=== PATIENT | female | born 1965 | race Caucasian/White ===

== ENCOUNTER 2024-09-19 07:06 | Day surgery (SDC) | payer OTHER, SELFPAY ==
[2024-09-19] VITALS (13 sets, daily range): BP systolic 125–145; BP diastolic 61–89; BMI 21.0
--- NOTE | 2024-09-19 16:23 | DOWNTIME ---
There was a [employer] Client Warehouse Associate Downtime on 09/19/2024 from 1230 to 09/19/2024 at 1550. Downtime documentation of patient's care, including medication administrations, has been reconciled in the electronic record per guidelines. Refer to the
patient's paper chart under the miscellaneous tab to see printed paper medication records and downtime forms.
--- NOTE | 2024-09-19 16:44 | ITS.CL.CATH ---
Instrument And Controls Technician - Catheterization
Cardiac Catheterization
Procedure Report:
LEFT AND RIGHT HEART CATHETERIZATION
Date of Procedure: September 19, 2024
Referring: Eric Dave MD
PROCEDURES:
1. Left heart catheterization, coronary angiogram.
2. Right heart catheterization
3. Moderate sedation.
INDICATION: Preoperative planning for mitral valve surgery
ACCESS: Right radial artery, 6Fr. sheath, under US guidance. Right common femoral vein, 6 Danish sheath, under ultrasound guidance using a micropuncture kit
HEMODYNAMICS : (mmHg)
RA (m) : 8
RV (s/d,m) : 27/, 11
PA (s/d, m) : , 20
PCWP (m) : 13
PA saturation: 69.1% on room air
AO saturation: 96.0 on room air
RA saturation: 75.5% on room air
Cardiac Output : 3.22 L/min
Cardiac Index : 1.93 L/min/m-2
Systemic vascular resistance: 2555 dsc^(-5)
Pulmonary vascular resistance: 2.17 juarez unit
AO (s/d) : 150/80
LVEDP : 14
No significant gradient across the aortic valve to suggest aortic stenosis.
CORONARY FINDINGS
Dominance: Right
Left Main Trunk (LMT): Large caliber vessel that gives rise to the LAD and LCx branches and is free of angiographic disease.
Left Anterior Descending Artery (LAD): Large caliber vessel that gives off 3 small caliber major diagonal branches as it courses along the anterior inter-ventricular groove before wrapping around the cardiac apex. The LAD and its branches are free
of angiographic disease.
Left Circumflex Artery (LCx): Large caliber vessel that gives off 1 major obtuse marginal (OM) branch as it courses along the atrio-ventricular (AV) groove. The LCx and its branches are free of angiographic disease.
Right Coronary Artery (RCA): Large caliber dominant vessel that gives rise to the posterior descending artery (RPDA) and postero-lateral ventricular (RPLV) branches distally. The RCA and its branches are free of angiographic disease.
SEDATION: 36 minutes of procedural sedation was utilized. IV Midazolam and IV Fentanyl were administered. An independent medical insurance clerk was present to assist with and help manage the patient's level of consciousness and physiologic status.
RADIATION SUMMARY: Fluoro Time (min): 3.3, Dose (mGy): 101.44, DAP (Gy.cm2) : 7.1
Closure Device: There were no immediate intra-procedural complications. The sheath was pulled in the garage laborer and a vascular-band applied to the right wrist for radial artery hemostasis using the patent hemostasis technique.
CONCLUSIONS
1. No obstructive coronary artery disease.
2. Mildly elevated right and left-sided filling pressures with mildly decreased cardiac output in the setting of significantly elevated systemic vascular resistance.
RECOMMENDATIONS
1. Wean radial band per protocol. Monitor right hand perfusion and for bleeding from the radial site following removal of the vascular-band following trans-radial access.
2. Continue aggressive medical therapy and risk factor modification for secondary CAD prevention. Consider addition of afterload reducing medications as an outpatient such as losartan 25 mg daily to help improve forward flow.
3. Keep appointment as scheduled with Dr. Eric Dave from CT surgery.
Hermelinda Alonso MD, FACC, [facility] [place]
--- NOTE | 2024-09-19 16:52 | ITS.CL.CATH ---
Addendum entered and electronically signed by Hermelinda Alonso MD 09/19/24 17:09:
This report has been accidentally entered in this chart but belongs to a different patient. Request has been made to get this deleted from this patient's chart so therefore please ignore.
Hermelinda Alonso MD, [facility], [facility]
Original Note:
Audio Recording Engineer - Catheterization
Cardiac Catheterization
Procedure Report:
LEFT AND RIGHT HEART CATHETERIZATION
Date of Procedure: September 19, 2024
Referring: Emy Bansal DO
PROCEDURES:
1. Left heart catheterization, coronary angiogram.
2. Right heart catheterization
3. Moderate sedation.
INDICATION: Preoperative planning for mitral valve surgery
ACCESS: Right radial artery, 6Fr. sheath, under US guidance. Right brachial vein, 6 Northern Irish sheath.
HEMODYNAMICS : (mmHg)
RA (m) : 8
RV (s/d,m) : 32/8, 12
PA (s/d, m) : 30/13, 21
PCWP (m) : 16
PA saturation: 70.5 % on room air
AO saturation: 93.8 percent on room air
Invasive trans mitral gradient of 2.71 with mitral valve area of 3.13 cm�
Cardiac Output : 3.78 L/min
Cardiac Index : 2.55 L/min/m-2
Systemic vascular resistance: 1523 dsc^(-5)
Pulmonary vascular resistance: 1.32 juarez unit
AO (s/d) : 112/63
LVEDP : 18
No significant gradient across the aortic valve to suggest aortic stenosis.
CORONARY FINDINGS
Dominance: Right
Left Main Trunk (LMT): Large caliber vessel that gives rise to the LAD and LCx branches and is free of angiographic disease.
Left Anterior Descending Artery (LAD): Large caliber vessel that gives off 2 major diagonal branches as it courses along the anterior inter-ventricular groove before wrapping around the cardiac apex. Mid to distal LAD has an eccentric 50 to 60%
stenosis, otherwise there is mild diffuse atherosclerotic plaque.
Left Circumflex Artery (LCx): Large caliber vessel that gives off 1 major obtuse marginal (OM) branch as it courses along the atrio-ventricular (AV) groove. Proximal portion of OM 1 has 30 to 40% stenosis
Right Coronary Artery (RCA): Large caliber dominant vessel that gives rise to the posterior descending artery (RPDA) and postero-lateral ventricular (RPLV) branches distally. Proximal and mid RCA has 2 tubular 30 to 40% stenoses.
SEDATION: 36 minutes of procedural sedation was utilized. IV Midazolam and IV Fentanyl were administered. An independent medical aide was present to assist with and help manage the patient's level of consciousness and physiologic status.
RADIATION SUMMARY: Fluoro Time (min): 3.8, Dose (mGy): 165.5 DAP (Gy.cm2) : 11 point
Closure Device: There were no immediate intra-procedural complications. The sheath was pulled in the electroplating laborer and a vascular-band applied to the right wrist for radial artery hemostasis using the patent hemostasis technique.
CONCLUSIONS
1. No obstructive coronary artery disease.
2. Mildly elevated right and left-sided filling pressures with mildly decreased cardiac output in the setting of significantly elevated systemic vascular resistance.
RECOMMENDATIONS
1. Wean radial band per protocol. Monitor right hand perfusion and for bleeding from the radial site following removal of the vascular-band following trans-radial access.
2. Continue aggressive medical therapy and risk factor modification for secondary CAD prevention. We discussed with patient at length recommending initiation of loop diuretic given increased filling pressures with ongoing dyspnea on exertion
however patient is resistant to changing her current and amiloride and HCTZ combination which she is being prescribed by her project management advisor for kidney stones.
3. Keep appointment as scheduled with Dr. Eric Dave from CT surgery.
Hermelinda Alonso MD, [facility], [facility]
== END 2024-09-19 14:00 | disposition home or self-care (01) ==
LOC: CATH 07:06
PROVIDERS: ATTENDING PHYSICIAN Nuclear Medicine Nuclear Cardiology; FAMILY PHYSICIAN Family Medicine
DX: I08.1 Rheumatic disorders of both mitral and tricuspid valves (principal); I25.10 Atherosclerotic heart disease of native coronary artery without angina pectoris; Z01.818 Encounter for other preprocedural examination; N20.0 Calculus of kidney; I08.8 Other rheumatic multiple valve diseases
CPT/HCPCS: 93312; 93320; 93325; 99152; 99153; 93460; C1769; C1894; Q9967

== ENCOUNTER 2024-09-21 07:20 | Inpatient (IN) | payer OTHER, SELFPAY ==
[2024-09-14 09:04] VITALS: BMI 22.1
[2024-09-14 09:05] LABS: % Basophils 0.7 % (0-2); % Eosinophils 2.5 % (0-6); % Immature Granulocytes 0.2 % (0-0.5); % Lymphocytes 32.9 % (20.5-51.1); % Monocytes 4.7 % (1.7-9.3); Absolute Eosinophils 0.1 10^3/uL (0-0.7); Absolute Lymphocytes 1.5 10^3/uL (1.2-3.4); Absolute Monocytes 0.2 10^3/uL (0.1-0.6); Absolute Neutrophils 2.6 10^3/uL (1.4-6.5); Hematocrit 42.9 % (37.0-47.0); Hemoglobin 14.6 g/dL (12.0-16.0); Mean Corpuscular Hgb 31.9 pg (27.0-31.0); Mean Corpuscular Volume 93.9 fL (81.0-99.0); Mean Platelet Volume 10.1 fL (7.4-10.4); Nucleated Red Blood Cells % 0 %; Platelet Count 230 10^3/uL (130-400); Red Blood Cell Count 4.57 10^6/uL (4.20-5.40); Red Cell Dist. Width 12.2 % (11.5-14.5); White Blood Cell Count 4.5 10^3/uL (4.8-10.8)
[2024-09-14 09:20] LABS: Urine Albumin Negative (Neg - Trace); Urine Bilirubin Negative (Negative); Urine Character Clear (Clear); Urine Color Yellow; Urine Glucose Negative (Negative); Urine Ketone Negative (Negative); Urine Leukocyte 2+ (Negative); Urine Nitrite Negative (Negative); Urine Occult Blood Negative (Negative); Urine Urobilinogen Negative (Neg - 1+)
[2024-09-14 09:23] LABS: INR 1.01; PT 13.7 Sec (11.4-14.6)
[2024-09-14 09:37] LABS: ALT (SGPT) 26 U/L (0-35); AST (SGOT) 28 U/L (14-36); Albumin 4.8 g/dl (3.5-5.0); Alkaline Phosphatase 65 U/L (38-126); Blood Urea Nitrogen 14 mg/dl (7-17); Calcium 9.8 mg/dl (8.4-10.2); Carbon Dioxide 29 mmol/L (22-30); Chloride 109 mmol/L (98-107); Estimated Creatinine Clearance 81 ml/min; Glucose 95 mg/dl (70-99); Potassium 5.2 mmol/L (3.5-5.1); Sodium 143 mmol/L (135-145); Total Bilirubin 1.1 mg/dl (0.2-1.3); Total Protein 7.6 g/dl (6.3-8.2); eGFR > 60.00
[2024-09-14 09:48] LABS: Urine Bacteria Few (Negative); Urine Red Blood Cell 0-2 /HPF (0-2); Urine White Cell 0-2 /HPF (0-5)
[2024-09-14 10:06] LABS: Glycohemoglobin (HgbA1c) 5.1 % (4.0-5.6)
--- NOTE | 2024-09-14 10:30 | CM ---
Met with and Mrs. Napier in [facility]. She states prior to admission she resides with her spouse and daughter in a two story home with one step to enter. She states she has a full flight of steps to get to bedroom/full bathroom. She states she has
powder room on the first floor. She states prior to admission she was independent with ambulation and adls. She states she does not have any DME in the home. She has a prescription plan. She states her spouse and daughter will be home to assist
in her if needed. She also states she has very supportive neighbors. The discharge plan is to return home with her spouse and her daughter with a home visit by the Transitional Care Nurse when medically stable.
We reviewed pre-op and post-op routines. We reviewed the showers instructions. She has the soap, written instructions and the Cardiothoracic Surgery Educational Booklet. We reviewed restrictions including lifting and driving restrictions. We
discussed a home visit by the Transitional Care Nurse. She is agreeable to a home visit. The plan is for Mitral Valve Repair on Saturday, September 21, 2024.
[2024-09-21] VITALS (16 sets, daily range): BP systolic 83–130; BP diastolic 42–77; PULSE 2–57; BMI 21.4
[2024-09-21] MEDS: PROTONIX 40 MG PO (08:26)
[2024-09-21] MEDS: MAGNESIUM OXIDE 500 MG PO (08:26)
[2024-09-21] MEDS: LOPRESSOR 25 MG PO (08:26)
--- NOTE | 2024-09-21 08:31 | PTCARENOTE ---
received pt pre op into 2260, confirmed shower x2 INTERNET MARKETING COORDINATOR, NPO since MN, pt clipped and prepped w CHG. Interview questions and medication list reviewed w the pt. Plan of care reviewed and questions encouraged.
[2024-09-21] MEDS: BACTROBAN 2% OINTMENT 1 APPLIC NASAL ×2 (08:50→20:12)
[2024-09-21 09:46] LABS: ACT+ - POC 107 Seconds (82-134)
--- NOTE | 2024-09-21 10:31 | W.CVOR.SURPR ---
CVOR Surgeon Immed Pre Op
-
I have examined this patient prior to performance of the scheduled procedure.
The patient's condition is unchanged from the time of the dictated/written History and
Physical and the patient is able to undergo the scheduled procedure.
HP MV Repair +/- ANYA Clip
[2024-09-21 10:40] LABS: Urine Albumin Negative (Neg - Trace); Urine Bilirubin Negative (Negative); Urine Character Clear (Clear); Urine Color Yellow; Urine Glucose Negative (Negative); Urine Ketone Negative (Negative); Urine Leukocyte Negative (Negative); Urine Nitrite Negative (Negative); Urine Occult Blood Negative (Negative); Urine Urobilinogen Negative (Neg - 1+)
[2024-09-21 11:16] LABS: ACT+ - POC 545 Seconds (82-134)
[2024-09-21 11:32] LABS: B.E. - POC 1.5 mmol/L; Glucose - POC 106 mg/dl (70-99); HCO3 - POC 28 mmol/L (21-28); Hematocrit - POC 34 % PCV (37-47); Hemodilution- POC No; Hemoglobin Calculated - POC 11.4; Ionized Calcium - POC 1.24 mmol/L (1.15-1.33); Lactate - POC 0.74 mmol/L (0.36-0.75); O2 Saturation %Calculated-POC 99.8 % (94-98); PCO2 - POC 50 mmHg (35-48); PO2 - POC 260 mmHg (83-108); Potassium - POC 4.4 mmol/L (3.5-5.1); Sodium - POC 142 mmol/L (136-145); Specimen Type - POC Arterial; pH - POC 7.36 (7.35-7.45)
--- NOTE | 2024-09-21 11:42 | CM ---
Chart reviewed. Patient is in the OR today. Patient is independent of ADLS, lives with her and daughter in a 2 STH, 1 KALA, 0 DME. Plan is for the patient to return home with CT Transitional RN. CM to follow
[2024-09-21 12:13] LABS: ACT+ - POC 472 Seconds (82-134)
[2024-09-21 12:34] LABS: B.E. - POC 3.6 mmol/L; Glucose - POC 142 mg/dl (70-99); HCO3 - POC 28 mmol/L (21-28); Hematocrit - POC 33 % PCV (37-47); Hemodilution- POC Yes; Hemoglobin Calculated - POC 11.2; Ionized Calcium - POC 1.06 mmol/L (1.15-1.33); Lactate - POC 0.34 mmol/L (0.36-0.75); PCO2 - POC 41 mmHg (35-48); PO2 - POC 399 mmHg (83-108); Potassium - POC 5.9 mmol/L (3.5-5.1); Sodium - POC 140 mmol/L (136-145); Specimen Type - POC Arterial; pH - POC 7.45 (7.35-7.45)
[2024-09-21 12:54] LABS: ACT+ - POC 944 Seconds (82-134)
[2024-09-21 12:58] LABS: B.E. - POC 3.6 mmol/L; Glucose - POC 141 mg/dl (70-99); HCO3 - POC 28 mmol/L (21-28); Hematocrit - POC 32 % PCV (37-47); Hemodilution- POC Yes; Ionized Calcium - POC 1.06 mmol/L (1.15-1.33); Lactate - POC 0.82 mmol/L (0.36-0.75); PCO2 - POC 39 mmHg (35-48); PO2 - POC 413 mmHg (83-108); Potassium - POC 5.8 mmol/L (3.5-5.1); Sodium - POC 140 mmol/L (136-145); Specimen Type - POC Arterial; pH - POC 7.46 (7.35-7.45)
[2024-09-21 13:03] LABS: B.E. - POC 3.7 mmol/L; Glucose - POC 127 mg/dl (70-99); HCO3 - POC 31 mmol/L (21-28); Hematocrit - POC 31 % PCV (37-47); Hemodilution- POC Yes; Hemoglobin Calculated - POC 10.6; Ionized Calcium - POC 1.02 mmol/L (1.15-1.33); Lactate - POC < 0.30 mmol/L (0.36-0.75); PCO2 - POC 58 mmHg (35-48); PO2 - POC 424 mmHg (83-108); Potassium - POC 5.8 mmol/L (3.5-5.1); Sodium - POC 142 mmol/L (136-145); Specimen Type - POC Arterial; pH - POC 7.33 (7.35-7.45)
[2024-09-21 13:36] LABS: ACT+ - POC 192 Seconds (82-134)
[2024-09-21 13:43] LABS: B.E. - POC 1.1 mmol/L; Glucose - POC 132 mg/dl (70-99); HCO3 - POC 26 mmol/L (21-28); Hematocrit - POC 32 % PCV (37-47); Hemodilution- POC Yes; Hemoglobin Calculated - POC 10.7; Lactate - POC 2.18 mmol/L (0.36-0.75); O2 Saturation %Calculated-POC 99.5 % (94-98); PCO2 - POC 42 mmHg (35-48); PO2 - POC 172 mmHg (83-108); Potassium - POC 4.6 mmol/L (3.5-5.1); Sodium - POC 143 mmol/L (136-145); Specimen Type - POC Arterial
[2024-09-21 13:44] LABS: ACT+ - POC 123 Seconds (82-134)
--- NOTE | 2024-09-21 13:55 | W.PN.CT.SURG ---
CT Surgery Operative Note
-
CARDIAC SURGERY OPERATIVE REPORT
Preoperative Diagnosis: Myxomatous mitral valve degeneration, severe insufficiency, Agosto valve
Postoperative Diagnosis: Same
Procedure(s) Performed:
1. Right mini thoracotomy with right femoral artery and vein cannulation under ANNIKA guidance
2. Radical mitral valve repair (40 mm band annuloplasty, 6 sets of neocords to leaflets, for going to the posterior leaflet to go to the anterior leaflet at A2)
3. Placement temporary ventricular pacing wires
4. Trans esophageal echocardiography
5. Left atrial appendage exclusion (40 mm clip x 2)
Date of Surgery: 09/21/2024
Comorbidities:
1. Myxomatous mitral valve degeneration, type II pathology with severe insufficiency, Agosto valve
2. Mild mitral annular calcification
3. Hyperlipidemia
4. Palpitations
5. Ocular migraines
6. Mild cardiomegaly
Attending Surgeon: Eric Dave MD, MS
Assistants: Summer Swenson PA-C (present and necessary for retraction, suctioning, exposure, suture management, wound closure, etc. under my direction)
Anesthesiology: Jarocho Ribera MD and Ty Boswell CRNA
Scrub and Circulating RNs: Sawyer Alex, GENARO, Zeus Lopes RN
Proposal Director: Mary Jo Hagan CCP
Anesthesia: GETA
EBL: per perfusion records
Products: None
CPB Time: 123 minutes
Aortic Cross Clamp Time: 101 minutes
Indication(s) for Procedures: This is a 59-year-old female who is relatively healthy who was found to have severe mitral valve insufficiency. Additional workup demonstrated billowing of both the anterior and posterior leaflets with enlarged
scallops on both sides. She fit a Agosto valve morphology. Given her severe left atrial dilation, slightly elevated left ventricular dimensions, she opted to pursue mitral valve intervention. She made a class IIa indication. Given her
palpitations, her left atrial appendage will be managed with surgery especially in the setting of a dilated left atrium.
Mitral Valve Description: Thickening of both the anterior and posterior leaflets, irregular calcification extending from the annulus at P2 P3 over the mitral valve although not infiltrating into the leaflet itself. Enlarged scallops with large
cleft between P2 P3 and P1 and P2, asymmetrically dilated annulus.
Implants:
1. 40 mm Jay physio flex band annuloplasty, SN [id number]
2. 40 mm pro V clip, serial #[id number]
3. Chord-X sets x 2 (one on each papillary muscle had)
Specimen:
1. None
Findings: Left ventricular ejection fraction preoperatively 55% with no regional wall motion abnormalities. Following surgery EF was hyperdynamic as she was initially on Dobutrex at low-dose. After coming off Dobutrex her EF normalized to 55% with
no new regional wall motion abnormalities. Left atrial appendage was clipped initially with a 40 mm pro 3 clip however I felt that it was not sufficiently at the base and so I reclipped this with a pro V clip flush to the base. The mitral valve
was repaired with a 40 mm band annuloplasty secured in place using a total of 13 nonpledgeted 2 Ethibond's with core knots. I then placed a set of cords onto each papillary muscle head and anchored 4 to the posterior leaflet and 2 to the anterior
leaflet at A2. Dynamic inflation and pressurization LV demonstrated a good posterior coaptation margin after adjusting the height of the Clark-Osito cords. There is no residual MR on testing. There is no residual MR and there was good coaptation
pressurization. After coming off of cardiopulmonary bypass, there was no residual mitral valve insufficiency she did attempt to have some systolic anterior motion that resolved completely after coming off of Dobutrex and volume loading. Her mean
gradient across the valve with a cardiac index of 2.9 was 4 mmHg. Left atrial appendage was completely obliterated with no residual flow. She did not require any blood products, she did not require any inotropic support, and she regained her sinus
rhythm postoperatively without need for pacing. She did have frequent PVCs and so was given 2 Amio boluses intraoperatively.
Description of Procedure: The patient was brought to the operating room and placed supine in the table with their right side bumped up and right arm down. Arterial and central access was performed by anesthesiology. The patient was prepped from chin
to toes in the typical sterile fashion. Trans esophageal evaluation of cardiac function and all valvular structures was conducted. Before commencing, a time out was performed by all members of the team. All were in agreement with the procedure and
laterality and I proceeded. A small right groin incision was made to expose the common femoral artery and vein. A total of 45,000 units of heparin was given. A 5-6 cm right lateral muscle sparing thoracotomy sweeping the pec major muscle cephalad at
the seratus anterior was performed over the 4th intercostal space verified by visualization of the hilum. Care was taken not to disrupt or injure her right breast implant. The common femoral artery and vein were cannulated under transesophageal
guidance using open Seldinger technique. The arterial line was verified to have an appropriate bounce and pressure correlating with testing. Once the ACT was above 400, retrograde autologous priming was done and we commenced cardiopulmonary bypass.
Target core temperature was 34�C.
Carbon dioxide was used to flood the field. The course of the phrenic nerve was identified to prevent injury. The pericardium was opened and two stay sutures were placed to facilitate a ``pericardial table.�� The oblique sinus was developed followed
by the inter atrial groove. An antegrade root vent was inserted and secured with a pursestring suture. The pump flow and mean arterial pressure were lowered and an aortic cross clamp was applied to the ascending aorta. A total of 1.2L initial dose
of Antegrade cardioplegia was delivered. We had rapid electro myocardial quiescence at 250 cc of cardioplegia. The ventricle was monitored for distension by echocardiogram during this time. Once the heart was fully arrested and flaccid, the left
atrial appendage was clipped via the transverse sinus. The left atrium was incised and enlarged. A left atrial lift retractor was placed. The mitral valve was inspected. The mitral valve was repaired as described above. The left atriotomy was
closed with 3-0 prolene in a running fashion leaving a ventricular vent in place to de-air. After filling the heart, the vent was removed and the prolene was secured with a corknot. Unipolar ventricular pacing wire was placed on the base of the
right ventricle. The patient was placed into Trendelenburg position and pump flows were lowered. The clamp was slowly removed with the root vent turned on. De-airing maneuvers were performed. We started to rewarm with a target of 36.5�C.
As the heart recovered, the mitral valve and ventricular function were assessed under transesophageal echocardiogram. Once weaning parameters were satisfactory, cardiopulmonary bypass flow was lowered until we were off cardiopulmonary bypass the
mitral valve was inspected again. All surgical sites were inspected for hemostasis and appeared appropriate. We briefly went back on cardiopulmonary bypass in order to remove the antegrade line. The lines were clamped and the arterial was
relocated to the venous cannula to give back volume. A test dose of protamine was delivered and patient was monitored for any adverse reactions followed by complete protamine dosing. The femoral vessels were decannulated and repaired as indicated.
The pericardium was approximated with 2-0 ethibond sutures secured with corknots. One 19F Norbert drain remained in the pleural space and threaded into the pericardium. There was an excellent palpable distal pulse to the DIVERSIFIED CROPS FARMER cannulation site. Local
analgesia was injected to the thoracotomy. The incision was closed in layers in a running fashion.
All instrument, sponge, and needle counts were confirmed to be correct x 2 at the end of the operation. The patient was transferred to the cardiac intensive care unit in critical but stable condition.
I, Dr. Eric Dave, was present, scrubbed for, and performed all critical elements of this procedure.
Eric Dave MD, MS
Cardiothoracic Surgeon
[facility]
This dictation was created using the [employer] dictation system. Please excuse any grammatical, typographical, or 'sound alike' errors
--- NOTE | 2024-09-21 14:15 | W.PN.CARDCBS ---
Addendum entered and electronically signed by Khris Walker MD 09/21/24 15:22:
Now Post-op
Extubated (in OR), currently on NRB and resting comfortably
Sleepy but arousable
RRR, Nl S1 and S2, No S3 or S4, No murmurs or rubs
CTs in place
Lungs clear anteriorly
Ext +1 LE edema b/l
Abd is Soft and non-distended
She underwent radical MV repair with 40 mm band annuloplasty via right minithoracotomy, ANYA clip on 09/21/2024 (Clip X2 with second clip noted to be flush to the base)
Hemodynamically stable post op, CI 2.4, on low dose levo at 2 mcg/min
Remains in SR
Overall stable, continue post-op care and wean levo as tolerates
Original Note:
Today's Communication / Plan
-
continue post op care
Impression / Plan
-
Primary Student Driving Instructor: Dr. Hernandez of [facility]
Assessment:
Severe mitral regurgitation status post radical MV repair with 40 mm band annuloplasty via right minithoracotomy, ANYA clip on 09/21/2024
Nonobstructive CAD by cath 09/19/24
Hyperlipidemia
History of palpitations
Ocular migraines
ECHO 09/04/24 at [facility]: EF 55%, severely dilated LA, mildly dilated RA, prolapse of both mitral valve leaflets, severe M R, high velocity MR jets
Plan:
-status post radical MV repair with 40 mm band annuloplasty via right minithoracotomy, ANYA clip on 09/21/2024
-extubated in OR. remains sedated
-CI 2.33. on levo@2 and receiving IVF. wean levo as able
-SB on review of tele and EKG
-was on lipitor 20mg HS prior to admission, resume when able
-continue post op care
-d/w nursing
Progress Note - Student Driving Instructor
Subjective
Date of Service: September 21, 2024
sedated
Objective
Labs:
Labs
Hgb 14.6 g/dL (12.0-16.0) 09/14/24 08:46
Hct 42.9 % (37.0-47.0) 09/14/24 08:46
Plt Count 230 10^3/uL (130-400) 09/14/24 08:46
PT 13.7 Sec (11.4-14.6) 09/14/24 08:46
INR 1.01 09/14/24 08:46
APTT Cancelled 09/14/24 08:14
Sodium 143 mmol/L (135-145) 09/14/24 08:46
Potassium 5.2 mmol/L (3.5-5.1) H 09/14/24 08:46
BUN 14 mg/dl (7-17) 09/14/24 08:46
Creatinine 0.7 mg/dL (0.6-1.0) 09/14/24 08:46
Glucose 95 mg/dl (70-99) 09/14/24 08:46
Vital Signs and I&O:
Vital Signs
Temp Resp BP Pulse Ox
97.9 F 16 122/68 99
09/21/24 07:20 09/21/24 07:20 09/21/24 07:17 09/21/24 07:20
Vital Signs
Temp Resp BP Pulse Ox
97.9 F 16 122/68 99
09/21/24 07:20 09/21/24 07:20 09/21/24 07:17 09/21/24 07:20
Intake & Output
09/19/24 09/20/24 09/21/24 09/22/24
07:59 07:59 07:59 07:59
Intake Total 0 / 0
Balance 0 / 0
Physical Exam
Physical Exam
GEN: No distress, sedated, on NRB. on brandan hugger
HEENT: supple, mmm
LUNGS: CTA B/L, no wheezes
CV: Reg and david, S1/S2, no murmur
ABD: soft, BS+, NT/ND
EXT: No cyanosis, clubbing, edema
NEURO: Gross non-focal
SKIN: Warm, pink, dry. No rash
[2024-09-21] MEDS: TYLENOL PO (14:17)
--- NOTE | 2024-09-21 14:18 | CON.INTV ---
Consultation
Consultation Request
Date/Time Consultation Requested: 09/21/2024 - 1343
Date/Time Consultation Performed: 09/21/2024 - 1406
Requesting Provider: Eloise Lucio NP
Performing Provider: Dr. Mcmillan
Reason for Consultation: s/p MV-repair
Medical History
-
Chief Complaint: Elective mitral valve repair
History of Present Illness:
59-year-old female with a past medical history of mitral valve regurgitation, ocular migraines, and hypercholesterolemia who presents for elective mitral valve repair. Patient is known to the cardiothoracic surgery service with last visit with
Jolie on 09/07/2024. Patient has a known history of severe MR. She had an echo done on 09/04/2022 which showed severely dilated LA with severe mitral valve insufficiency with a complex jet that was central and posteriorly directed. She also has been
noticing increasing palpitations and chest discomfort. Risks and benefits of cardiothoracic intervention were reviewed and she agreed to the radical mitral valve repair. She underwent this procedure today with no complications and was transferred
to the CVICU for further care with Banking And Finance Instructor services consulted for additional management/recommendations.
When I saw the patient, she was still very lethargic and on BiPAP 10/5 bled with 4 L/min and saturating 98%. Currently on insulin drip at 3 units/hr. Right mediastinal/pleural chest tube in place on suction. Currently on Levophed at 3 mcg/min.
PMHx: Severe mitral regurgitation, hypercholesterolemia, palpitations, ocular migraine
PSHx: Appendectomy, endometrial ablation, , D&C, breast surgery
Past Medical History
Past Medical History: Other (Above as per HPI)
Past Surgical History: Other (Above as per HPI)
Social History
Tobacco: Non-smoker
Alcohol: Occasional (1-2 drinks a week)
Drug: None
Personal:
Living: With Family
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
Family History
Family History: Adopted and CAD (Father)
Allergies / Home Medications
Allergies
Allergy/AdvReac Type Severity Reaction Status Date / Time
No Known Allergies Allergy Unverified 09/21/24 01:24
Home Medications
�Medication �Instructions �Recorded �Confirmed �Last Taken �Type
atorvastatin 20 mg tablet 20 mg PO HS 09/12/24 09/21/24 09/20/24 19:00 History
multivitamin-ferrous 1 tab PO DAILY 09/12/24 09/21/24 09/18/24 20:00 History
fumarate-folic acid 18 mg-400 mcg
tablet (Women's Daily Multivitamin)
omega-3 fatty acids 1 cap PO DAILY 09/12/24 09/21/24 09/12/24 20:00 History
Review of Systems
-
Unable to Obtain full review of systems at this time due to: Acuity (Drowsy)
Vitals / Labs / Diagnostic Testing
Vital Signs
Temp Pulse Resp BP Pulse Ox
98.5 F 58 16 111/57 98
09/21/24 19:00 09/21/24 19:00 09/21/24 19:00 09/21/24 19:00 09/21/24 19:00
Lab Data
09/21/24 18:33
09/21/24 14:31
Laboratory Results
09/21/24 09/21/24
14:31 16:49
PT 16.7 H
INR 1.32
APTT 26.2
pH 7.27 L 7.32 L
pCO2 57 H 44 H
pO2 233 H 155 H
HCO3 26.2 22.7
O2 Delivery Level 40% vent
Diagnostic Testing:
Physical Exam
-
HEENT: Normocephalic and Anicteric
Cardiovascular: S1/S2 and Peripheral Edema (+1 lower extremity pitting edema bilaterally)
Respiratory: Wheeze (negative), Rales (negative), Rhonchi (negative) and Non-Labored Respirations
GI: Soft, Non Distended, Non Tender and Normal Bowel Sounds
Neurology: Tremors (negative) and Other (Drowsy)
Skin: Warm and Dry
General: Respiratory Distress (negative), Comfortable, Fever (negative) and Chills (negative)
Assessment
-
Assessment: 59-year-old female with a past medical history of mitral valve regurgitation, ocular migraines, and hypercholesterolemia who presents for elective mitral valve repair. Patient is known to the cardiothoracic surgery service with last
visit with Dr. Dave on 09/07/2024. Patient has a known history of severe MR. She had an echo done on 09/04/2022 which showed severely dilated LA with severe mitral valve insufficiency with a complex jet that was central and posteriorly directed.
She also has been noticing increasing palpitations and chest discomfort. Risks and benefits of cardiothoracic intervention were reviewed and she agreed to the radical mitral valve repair. On 09/21/2024, she underwent a right mini-thoracotomy with
radical mitral valve repair, and a left atrial appendage exclusion with a 40 mm clip x 2. There were no complications and was transferred to the CVICU for further care with Banking And Finance Instructor services consulted for additional management/recommendations.
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
Impression:
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
#Acute respiratory failure with hypercapnia requiring BiPAP - hypercapnia likely due to recent anesthesia
#Anemia (mild) � due to above
#Palpitations
#Hyperlipidemia
#Ocular migraines
#Mild cardiomegaly
Plan:
Patient was extubated in the CV OR and then was transferred to the CVICU postoperatively
Given that patient was lethargic, she was transitioned to BiPAP 10/5cmH2O which was bled with 4 L/min. Wean off the BiPAP after more time passes and allows the recent anesthesia to wear off
Her blood gas shows evidence of hypercapnia with PCO2 ranging between 44-57; I do not have a baseline blood gas or serum bicarbonate level to review, however her serum bicarbonate level was 29 on 09/14/2024, indicating that her baseline pCO2 is
likely around 50. Based on her pH levels and pCO2, there is most likely a mixed metabolic and respiratory acidosis causing her low pH.
Continue trending blood gas to assure pH + pCO2 remained stable, and can use BiPAP with sleep or prn during the day, elsa if pCO2 remains elevated and does not improve as she awakens, which I thankfully have low suspicion for
Maintain SpO2 >90-94%
prn nebulized bronchodilators - not currently bronchospastic
Once patient is more awake, would encourage incentive spirometer use every hour while awake
Pulmonary artery catheter parameters will be followed
Pressors/antihypertensive/inotropes/diuretics will be provided as needed
Maintain MAP>65
Replete electrolytes with K>4, Mg>2
Monitor chest tube output (mediastinal/right pleural chest tube)
Monitor hemoglobin
Monitor platelet count and coags
Transfuse blood products as needed to maintain Hb>7g/dL, plt>50k (given post-operative status)
CT surgery managing chest tubes
Monitor blood sugar to maintain euglycemia with goal BG 110-140
Insulin drip per protocol
Aspiration precautions
DVT prophylaxis
Early nutrition
Early mobilization
Critical care statement: A total of 41 minutes of critical care time was provided for this patient today. This includes management of ventilator, spontaneous breathing trial, arterial blood gases, pressors, of unstable vital signs, evaluation of the
patient at bedside, reviewing the patient's pertinent medical records including radiographs, microbiology, laboratory evaluations, and discussion with primary team and critical care nursing.
--- NOTE | 2024-09-21 14:30 | PTCARENOTE ---
Pt received from CVOR. Pt extubated on 15L simple mask. POX 99%. Transitioned to 8L simple max. B/l anterior lung sounds audible. Pt unresponsive, but breathing. RR 13-14. PERRLA 3mm brisk. Mediastinal/Right pleural chest tube to -20cm suction
draining red fluid. No air leak, tidaling, crepitus noted. SB with PVCs on tele with rates in the 50s. BP supported with levophed 106/57. CI 2.33. PA pressures 30s/10s, CVP 6, 500mL LR administered as per CT RETAIL PARTS PROFESSIONAL. Bilateral radial pulses palpable,
right DP pulse present via doppler, left DP pulse palpable. No edema noted. Epicardial v-wire tied to temp pacer box. Abdomen soft, nontender. Hypoactive BS. Sun catheter intact draining clear yellow urine. Right lateral chest incision
approximated with skin glue. Scattered right upper chest puncture sites approximated with skin glue. CT dressing CDI. Right groin incision approximated with skin glue, COMPUTER TECHNICIAN. Right IJ cordis intact with swan floated to 45cm. Right hand 20g PIV intact.
Gtts: Levo @ 3, Insulin @ 1, NSS KVO. Post-op EKG, labs, and CXR obtained. See MAR for medication administration. See worklist for complete nursing assessment.
[2024-09-21 14:47] LABS: B.E. -1.6 mmol/L; HCO3 26.2 mmol/L (21-28); Ionized Calcium 1.23 mMOL/L (1.15-1.33); O2 Saturation % 99.6 % (94-98); PCO2 57 mmHg (32-35); PO2 233 mmHg (83-108); Potassium 4.1 mMOL/L (3.5-5.1); Sodium 138 mMOL/L (136-145); pH 7.27 (7.35-7.45)
[2024-09-21 14:48] LABS: O2 Therapy 40% VENT
[2024-09-21 14:53] LABS: Hematocrit 35.3 % (37.0-47.0); Hemoglobin 12.1 g/dL (12.0-16.0); Platelet Count 186 10^3/uL (130-400)
[2024-09-21 14:56] LABS: APTT 26.2 Sec (23.4-35.0); INR 1.32; PT 16.7 Sec (11.4-14.6)
[2024-09-21 15:02] LABS: Blood Urea Nitrogen 14 mg/dl (7-17); Estimated Creatinine Clearance 81 ml/min; Glucose 138 mg/dl (70-99); Magnesium 2.6 mg/dl (1.6-2.3)
--- NOTE | 2024-09-21 15:05 | PTCARENOTE ---
ABG resulted, CT PRODUCTION EXPEDITER notified. Orders for bipap. RT notified, Bipap initiated at 10/5, 4L. Pt tolerating. POX 98%.
--- NOTE | 2024-09-21 15:10 | PTCARENOTE ---
Family at bedside. Pt opens eyes to voice, squeezes hands and wiggles toes to command. Pt shakes her head 'no' to pain and nausea. Pt resting.
[2024-09-21] MEDS: NSS 500 IV (15:31)
[2024-09-21] MEDS: ANCEF 10 IV ×2 (15:31)
[2024-09-21] MEDS: LR 250 ML IV ×4 (15:31→20:12)
[2024-09-21 15:48] LABS: Glucose - Point of Care 140 mg/dl (70-99)
[2024-09-21 15:50] LABS: Glucose - Point of Care 147 mg/dl (70-99)
[2024-09-21] MEDS: PACERONE PO (16:07)
[2024-09-21] MEDS: NEURONTIN PO (16:07)
--- NOTE | 2024-09-21 16:50 | PTCARENOTE ---
Pt bathed with CHG wipes. Turned from side to side without significant dumps in chest tubes. Pt tolerated. Per CT CRIMINAL ATTORNEY, RT notified to take patient off bipap. POX 99% on 4L NC. Pt alert and oriented x4. Able to move all extremities with equal
strength. Family at bedside.
[2024-09-21] MEDS: TORADOL 15 MG IV ×2 (16:53→22:08)
[2024-09-21 16:56] LABS: B.E. -3.4 mmol/L; HCO3 22.7 mmol/L (21-28); Ionized Calcium 1.15 mMOL/L (1.15-1.33); O2 Saturation % 99.6 % (94-98); PCO2 44 mmHg (32-35); PO2 155 mmHg (83-108); Potassium 3.7 mMOL/L (3.5-5.1); Sodium 140 mMOL/L (136-145); pH 7.32 (7.35-7.45)
[2024-09-21 17:02] LABS: Glucose - Point of Care 106 mg/dl (70-99)
[2024-09-21] MEDS: CALCIUM GLUCONATE 100 IV (17:06)
[2024-09-21] MEDS: KCL 50 IV ×2 (17:06→18:04)
[2024-09-21 18:03] LABS: Glucose - Point of Care 88 mg/dl (70-99)
[2024-09-21 18:42] LABS: Hemoglobin 11.4 g/dL (12.0-16.0); Platelet Count 163 10^3/uL (130-400)
[2024-09-21 19:02] LABS: Glucose - Point of Care 102 mg/dl (70-99)
[2024-09-21] MEDS: LOW STRENGTH ASPIRIN 81 MG PO (20:09)
--- NOTE | 2024-09-21 20:25 | PTCARENOTE ---
received pt from previous rn. pt resting comfortably in bed at time of assessment. AAOx4, VSS, Sinus david per tele monitor, +pulses, v wire set to VVI 40/20/2. RIJ cordis w/ [place] floated to 45. L rad a-line intact. all lines zeroed flushed and
leveled. Ctx1 set to -20cm wall suction draining red blood. no air leaks/tidaling or crepitus noted. pox 99% on 2L NC. lungs clear but diminished. IS 1250. +bs, luciano draining clear yellow urine. all surgical incisions intact. CT dressing c/d/i. PIV
x1 infusing insulin per glycemic protocol. plan of care discussed questions encouraged. call katz within reach.
[2024-09-21] MEDS: ZOFRAN 4 MG IV (20:46)
[2024-09-21 20:54] LABS: Glucose - Point of Care 114 mg/dl (70-99)
[2024-09-21] MEDS: SENOKOT-S PO (21:02)
--- NOTE | 2024-09-21 21:24 | PTCARENOTE ---
pt c/o nausea, small amount of emesis, Zofran given.
[2024-09-21] MEDS: ANCEF 5 IV (22:08)
[2024-09-21] MEDS: REGLAN 10 MG IV (22:40)
[2024-09-21 22:57] LABS: Glucose - Point of Care 107 mg/dl (70-99)
[2024-09-22] VITALS (20 sets, daily range): BP systolic 77–112; BP diastolic 57–76; PULSE 74; O2SAT 97–98; BMI 22.3
[2024-09-22 01:11] LABS: Glucose - Point of Care 88 mg/dl (70-99)
[2024-09-22] MEDS: FLEXERIL 5 MG PO (01:16)
[2024-09-22] MEDS: PACERONE PO (01:18)
[2024-09-22] MEDS: LIPITOR PO (01:18)
[2024-09-22] MEDS: NEURONTIN PO (01:18)
[2024-09-22] MEDS: TYLENOL PO (01:19)
[2024-09-22] MEDS: ROXICODONE 5 MG PO (01:37)
[2024-09-22 03:12] LABS: Glucose - Point of Care 115 mg/dl (70-99)
[2024-09-22] MEDS: DILAUDID 0.25 MG IV ×2 (03:15→06:35)
[2024-09-22 03:22] LABS: Venous Blood Gas B.E. -0.9 mmol/L (-4 to +4); Venous Blood Gas HCO3 26.4 mmol/L (22-27); Venous Blood Gas O2 Sat % 95.1 %; Venous Blood Gas pCO2 55 mmHg (35-48); Venous Blood Gas pH 7.29 (7.32-7.43); Venous Blood Gas pO2 70 mmHg (30-50)
[2024-09-22 03:30] LABS: Hematocrit 33.4 % (37.0-47.0); Hemoglobin 11.3 g/dL (12.0-16.0); Mean Corp Hgb Conc. 33.8 g/dL (33.0-37.0); Mean Corpuscular Hgb 31.9 pg (27.0-31.0); Mean Corpuscular Volume 94.4 fL (81.0-99.0); Mean Platelet Volume 10.9 fL (7.4-10.4); Platelet Count 157 10^3/uL (130-400); Red Blood Cell Count 3.54 10^6/uL (4.20-5.40); Red Cell Dist. Width 12.2 % (11.5-14.5); White Blood Cell Count 13.1 10^3/uL (4.8-10.8)
--- NOTE | 2024-09-22 03:40 | PTCARENOTE ---
VSS, NSR per tele monitor, pt c/o pain increasing see MAR. pt also stating that her nausea has subsided. otherwise assessment remains unchanged.
--- NOTE | 2024-09-22 03:50 | W.PN.CT ---
Today's Communication / Plan
-
-POD#1
-CI>2.4, CVP 10-14, BP 100's/70's
-CT output minimal overnight 135ml since surgery, maintain today.
-UO 25-45/hr., BUN/Cr 19/0.6
-VBG 7.29/55/70/26.4/95.1%, QUW112.9
-discontinue swan, a-line, luciano
-encourage ISB, pulm toilet
-gentle diuresis
Assessment / Plan
-
s/p Radical mitral valve repair (40 mm band annuloplasty, 6 sets of neocords to leaflets, for going to the posterior leaflet to go to the anterior leaflet at A2) through right mini thoracotomy with right femoral artery and vein cannulation POD#1
-Myxomatous mitral valve degeneration, type II pathology with severe insufficiency, Agosto valve
-Mild mitral annular calcification
-Hyperlipidemia
-Palpitations
-Ocular migraines
-Mild cardiomegaly
Subjective
Procedure
s/p Radical mitral valve repair (40 mm band annuloplasty, 6 sets of neocords to leaflets, for going to the posterior leaflet to go to the anterior leaflet at A2) through right mini thoracotomy with right femoral artery and vein cannulation on
09/21/[address] Dave
-
Date of Service: September 22, 2024
Objective Data
-
Lab Results
09/22/24 03:10
09/22/24 03:10
PT 16.7 Sec (11.4-14.6) H 09/21/24 14:31
INR 1.32 09/21/24 14:31
APTT 26.2 Sec (23.4-35.0) 09/21/24 14:31
Vital Signs
Vital Signs
Temp Pulse Resp BP Pulse Ox
100.0 F 68 22 104/73 98
09/22/24 03:00 09/22/24 03:15 09/22/24 03:15 09/22/24 03:00 09/22/24 03:15
CT Intake/Output/Weight
09/21/24 09/21/24 09/22/24
06:59 18:59 06:59
Intake Total 1023.8 / 1535.7 511.9 / 1535.7
Output Total 375 / 830 455 / 830
Balance 648.8 / 705.7 56.9 / 705.7
SaO2: 98
Physical Exam
-
General: AOx3
Cardiovascular: Regular rate & rhythm
Respiratory: Decreased Breath Sounds
Incision: Clean, Dry and Intact
Extremities: No Edema
[2024-09-22 03:52] LABS: Blood Urea Nitrogen 19 mg/dl (7-17); Calcium 8.9 mg/dl (8.4-10.2); Carbon Dioxide 23 mmol/L (22-30); Chloride 113 mmol/L (98-107); Estimated Creatinine Clearance 95 ml/min; Glucose 111 mg/dl (70-99); Magnesium 1.8 mg/dl (1.6-2.3); Potassium 4.8 mmol/L (3.5-5.1); Sodium 141 mmol/L (135-145); eGFR > 60.00
[2024-09-22] MEDS: TORADOL 15 MG IV (04:04)
[2024-09-22 05:02] LABS: Glucose - Point of Care 80 mg/dl (70-99)
[2024-09-22 05:03] LABS: Mixed Venous O2 Saturation 73.9 %
[2024-09-22] MEDS: ANCEF 5 IV ×2 (06:16→13:46)
[2024-09-22] MEDS: TYLENOL 1000 MG PO ×3 (06:16→21:10)
[2024-09-22 07:10] LABS: Glucose - Point of Care 99 mg/dl (70-99)
--- NOTE | 2024-09-22 07:17 | PTCARENOTE ---
Uriel oneill'madonna, ankita oneill'd at 0597 DTV @ 2979.
--- NOTE | 2024-09-22 07:55 | W.PN.ANS.POP ---
Anesthesia Post Operative
- Anesthesia Post Op Note
Vital Signs Stable-See Nursing Note: Yes
Airway Patent: Yes
Adequate Pain Control: Yes
Change in Mental Status: No
Current Postoperative Nausea & Vomiting: No
Anesthesia Complications: No
General Anesthetic Recall: No
Unplanned Admission: No
Post Op Hydration Adequate: Yes
--- NOTE | 2024-09-22 08:28 | W.PN.INTV ---
Today's Communication / Plan
Recommendations
Patient has been weaned off insulin drip
Goal BG 110�140
Pain control
Up OOB as tolerated
Cardiac rehab
Encourage incentive spirometer use
Patient to be downgraded to CVICU�telemetry status. No additional recommendations at this time. Claim Taker/Pulmonary service will now sign off. Please reconsult if there are any additional questions/concerns, or if patient's respiratory status
deteriorates.
Assessment
-
Assessment: 59-year-old female with a past medical history of mitral valve regurgitation, ocular migraines, and hypercholesterolemia who presents for elective mitral valve repair. Patient is known to the cardiothoracic surgery service with last
visit with Dr. Dave on 09/07/2024. Patient has a known history of severe MR. She had an echo done on 09/04/2022 which showed severely dilated LA with severe mitral valve insufficiency with a complex jet that was central and posteriorly directed.
She also has been noticing increasing palpitations and chest discomfort. Risks and benefits of cardiothoracic intervention were reviewed and she agreed to the radical mitral valve repair. On 09/21/2024, she underwent a right mini-thoracotomy with
radical mitral valve repair, and a left atrial appendage exclusion with a 40 mm clip x 2. There were no complications and was transferred to the CVICU for further care with Claim Taker services consulted for additional management/recommendations.
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
Impression:
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
#Acute respiratory failure with hypercapnia requiring BiPAP - hypercapnia likely due to recent anesthesia - now on room air and mentating normally
#Anemia (mild) � due to above
#Palpitations
#Hyperlipidemia
#Ocular migraines
#Mild cardiomegaly
Plan:
Patient was extubated in the CVOR and then was transferred to the CVICU postoperatively
Given that patient was lethargic, she was transitioned to BiPAP 10/5cmH2O which was bled with 4 L/min.
Now weaned off BiPAP and on room air, breathing comfortably and maintaining normally
Her blood gas from this morning did show that she had continued hypercapnia with pH 7.29, pCO2 55. Would recheck another blood gas tomorrow morning just to make sure her pH + pCO2 are trending towards normal
Her blood gas shows evidence of hypercapnia with PCO2 ranging between 44-57; I do not have a baseline blood gas or serum bicarbonate level to review, however her serum bicarbonate level was 29 on 09/14/2024, indicating that her baseline pCO2 is
likely around 45-50. Based on her blood gas pH levels and pCO2 from yesterday, there is most likely a mixed metabolic and respiratory acidosis causing her low pH.
Continue trending blood gas to assure pH + pCO2 remained stable, and can use BiPAP with sleep or prn during the day, elsa if pCO2 remains elevated and does not improve as she awakens
Maintain SpO2 >90-94%
prn nebulized bronchodilators - not currently bronchospastic
Encourage incentive spirometer use every hour while awake
Pressors/antihypertensive/inotropes/diuretics will be provided as needed
Maintain MAP>65
Replete electrolytes with K>4, Mg>2
Monitor hemoglobin
Monitor platelet count and coags
Transfuse blood products as needed to maintain Hb>7g/dL, plt>50k (given post-operative status)
Chest tube has been removed by CT surgery service
Monitor blood sugar to maintain euglycemia with goal BG 110-140
Insulin drip per protocol � insulin drip has been stopped; recommend ISS to maintain BG goal as above
Aspiration precautions
DVT prophylaxis
Early nutrition
Early mobilization
Patient to be downgraded to CVICU�telemetry status. No additional recommendations at this time. Claim Taker/Pulmonary service will now sign off. Thank you for allowing us to be involved in the care of this patient. Please reconsult if there are
any additional questions/concerns, or if patient's respiratory status deteriorates.
Total time spent today was 59 minutes for this encounter. Time includes reviewing laboratory test/imaging results, reviewing pertinent medical records, obtaining and reviewing medical history, performing an appropriate exam, ordering medications,
tests and procedures. Time also includes documentation of this encounter, coordinating patient care and communicating with other healthcare professionals. Total time does not include separately billed tests performed on this date of service.
Subjective Dataa
Subjective Data
Date of Service:
Date of Service: September 22, 2024
Chief Complaint: Claim Taker Follow Up
Subjective:
Patient seen this morning. Resting in bed no acute distress. Heart rate 80, breathing comfortably on room air. Multiple family members at bedside and all questions were answered.
Review of Systems
General: Other (Negative unless mentioned above)
Objective Data
Data Reviewed
Vital Signs / I&O / Oxygen:
Vital Signs
Temp Pulse Resp BP Pulse Ox
99.9 F 72 18 93/71 97
09/22/24 10:00 09/22/24 10:35 09/22/24 10:00 09/22/24 10:00 09/22/24 10:00
Intake and Output
09/21/24 09/22/24 09/23/24
06:59 06:59 06:59
Intake Total 1608.4 / 1619.2 282.0 / 282.0
Output Total 915 / 920 5 / 5
Balance 693.4 / 699.2 277.0 / 277.0
SaO2 97
Nasal Cannula flow liters per 2
minute
Physical Exam
General: Respiratory Distress (negative), Comfortable, Chills (negative) and Sweats (negative)
HEENT: Normocephalic and Anicteric
Cardiovascular: S1-S2 and Peripheral Edema (negative)
Respiratory: Clear and Non-Labored Respirations
GI: Soft, Non Distended, Non Tender and Normal Bowel Sounds
Neurology: AO x 3 and Tremors (negative)
Skin: Warm, Dry and Jaundice (negative)
Labs/Micro/Reports
Lab Data
09/22/24 03:10
09/22/24 03:10
Laboratory Results
09/21/24 09/21/24
14:31 16:49
PT 16.7 H
INR 1.32
APTT 26.2
pH 7.27 L 7.32 L
pCO2 57 H 44 H
pO2 233 H 155 H
HCO3 26.2 22.7
O2 Delivery Level 40% vent
[2024-09-22] MEDS: NEURONTIN 100 MG PO ×3 (08:58→21:11)
[2024-09-22] MEDS: BACTROBAN 2% OINTMENT 1 APPLIC NASAL ×2 (08:58→20:04)
[2024-09-22] MEDS: LOW STRENGTH ASPIRIN 81 MG PO (08:59)
[2024-09-22] MEDS: PACERONE 200 MG PO ×3 (08:59→21:11)
[2024-09-22] MEDS: MAGNESIUM OXIDE 500 MG PO ×2 (08:59→20:05)
[2024-09-22] MEDS: PROTONIX 40 MG PO (08:59)
[2024-09-22] MEDS: SENOKOT-S 1 TABLET PO ×2 (08:59→20:06)
[2024-09-22] MEDS: LOPRESSOR 12.5 MG PO ×2 (09:04→20:05)
[2024-09-22 09:05] LABS: Glucose - Point of Care 84 mg/dl (70-99)
[2024-09-22 10:57] LABS: Glucose - Point of Care 82 mg/dl (70-99)
--- NOTE | 2024-09-22 10:59 | PTCARENOTE ---
chest tube d/c'd without issue. VSS. will continue to monitor. remains at bedside.
--- NOTE | 2024-09-22 11:09 | W.PN.CARDCBS ---
Today's Communication / Plan
-
Physical exam finds pericardial friction rub and ECG with findings suggestive of pericarditis. She is not very symptomatic. Have discussed with CT surgical PA. Will initiate short-term colchicine.
Impression / Plan
-
Primary Pulp Mill Team Leader: Dr. Hernandez of [facility]
Assessment:
Severe mitral regurgitation status post radical MV repair with 40 mm band annuloplasty via right minithoracotomy, ANYA clip on 09/21/2024
Nonobstructive CAD by cath 09/19/24
Hyperlipidemia
History of palpitations
Ocular migraines
ECHO 09/04/24 at [facility]: EF 55%, severely dilated LA, mildly dilated RA, prolapse of both mitral valve leaflets, severe M R, high velocity MR jets
Plan:
Overall doing very well after radical MV repair with 40 mm band annuloplasty via right minithoracotomy, NAYA clip on 09/21/2024, extubated in OR
-SR on review of tele with occasional PVC and a short run of nonsustained VT, electrolytes okay with potassium 4.8 and magnesium 1.8
-Pericardial friction rub on exam and diffuse ST segment elevation on her EKG is consistent with pericarditis
Discussed with CT surgical PA, colchicine will be initiated
-Lipitor 20mg has been resumed
-Continue post op care
Progress Note - Pulp Mill Team Leader
Subjective
Date of Service: September 22, 2024
She is awake and alert laying flat in bed and appears comfortable. Smiling tells me she feels well overall. Tells me she has had less discomfort in her chest since the chest tubes were removed.
Objective
Labs:
09/22/24 03:10
09/22/24 03:10
Labs
Hgb 11.3 g/dL (12.0-16.0) L 09/22/24 03:10
Hct 33.4 % (37.0-47.0) L 09/22/24 03:10
Plt Count 157 10^3/uL (130-400) 09/22/24 03:10
PT 16.7 Sec (11.4-14.6) H 09/21/24 14:31
INR 1.32 09/21/24 14:31
APTT 26.2 Sec (23.4-35.0) 09/21/24 14:31
Sodium 141 mmol/L (135-145) 09/22/24 03:10
Potassium 4.8 mmol/L (3.5-5.1) 09/22/24 03:10
BUN 19 mg/dl (7-17) H 09/22/24 03:10
Creatinine 0.6 mg/dL (0.6-1.0) 09/22/24 03:10
Glucose 111 mg/dl (70-99) H 09/22/24 03:10
Vital Signs and I&O:
Vital Signs
Temp Pulse Resp BP Pulse Ox
99.9 F 72 18 93/71 97
09/22/24 10:00 09/22/24 10:35 09/22/24 10:00 09/22/24 10:00 09/22/24 10:00
Vital Signs
Temp Pulse Resp BP Pulse Ox
99.9 F 72 18 93/71 97
09/22/24 10:00 09/22/24 10:35 09/22/24 10:00 09/22/24 10:00 09/22/24 10:00
Intake & Output
09/20/24 09/21/24 09/22/24 09/23/24
06:59 06:59 06:59 06:59
Intake Total 1608.4 / 1619.2 282.0 / 282.0
Output Total 915 / 920
Balance 693.4 / 699.2 277.0 / 277.0
Physical Exam
Physical Exam
Well-appearing no acute distress
Regular rate and rhythm with normal S1 and S2, no S3 no S4, there is a pericardial friction rub loudest at the apex, no murmurs
Lungs are clear to auscultation bilaterally
Abdomen soft and tender nondistended with normoactive bowel sound
Extremities showed no clubbing or cyanosis there is trace pretibial edema bilaterally
[2024-09-22] MEDS: COLCHICINE 0.6 MG PO ×2 (13:45→20:06)
[2024-09-22] MEDS: NSS IV (13:46)
[2024-09-22] MEDS: FERRLECIT 110 MG IV (13:46)
[2024-09-22 13:52] LABS: Glucose - Point of Care 104 mg/dl (70-99)
--- NOTE | 2024-09-22 20:34 | PTCARENOTE ---
received pt from previous rn. AAOx4 VSS, NSR per tele monitor HR 70s, V wire insulated, +pulses, lungs clear and diminished, pox 96% on RA, IS 1250, +bs, voids spontaneously in bathroom, all surgical incisions intact, RIJ cordis infusing KVO, PIVx1
flushes. plan of care discussed questions encouraged. call katz within reach.
[2024-09-22] MEDS: LIPITOR 20 MG PO (21:11)
--- NOTE | 2024-09-23 00:08 | PTCARENOTE ---
pt resting comfortably in bed, VSS, NSR per tele monitor assessment remains unchanged
[2024-09-23 03:20] VITALS: BP 107/68
[2024-09-23] MEDS: TYLENOL 1000 MG PO ×3 (03:26→20:39)
--- NOTE | 2024-09-23 03:37 | PTCARENOTE ---
pt c/o headache see MAR, VSS, routine labs obtained, NSR per tele monitor, otherwise assessment remains unchanged
[2024-09-23 04:01] LABS: Hematocrit 29.8 % (37.0-47.0); Hemoglobin 10.2 g/dL (12.0-16.0); Mean Corp Hgb Conc. 34.2 g/dL (33.0-37.0); Mean Corpuscular Hgb 32.3 pg (27.0-31.0); Mean Corpuscular Volume 94.3 fL (81.0-99.0); Mean Platelet Volume 11.1 fL (7.4-10.4); Platelet Count 140 10^3/uL (130-400); Red Blood Cell Count 3.16 10^6/uL (4.20-5.40); White Blood Cell Count 11.7 10^3/uL (4.8-10.8)
[2024-09-23 04:20] LABS: Blood Urea Nitrogen 25 mg/dl (7-17); Calcium 8.2 mg/dl (8.4-10.2); Carbon Dioxide 26 mmol/L (22-30); Chloride 102 mmol/L (98-107); Estimated Creatinine Clearance 71 ml/min; Glucose 123 mg/dl (70-99); Potassium 4.9 mmol/L (3.5-5.1); Sodium 131 mmol/L (135-145); eGFR > 60.00
--- NOTE | 2024-09-23 05:21 | W.PN.CT ---
Today's Communication / Plan
-
-POD#2
-De-lined
-CT out
-encourage ISB, pulm toilet
-Na 131 from 141 this AM, repeat BMP and if still low will check UA/Na/osm and fluid restrict
-rub on exam with EKG changes, cards initiated colchicine
-discharge planning
Assessment / Plan
-
s/p Radical mitral valve repair (40 mm band annuloplasty, 6 sets of neocords to leaflets, for going to the posterior leaflet to go to the anterior leaflet at A2) through right mini thoracotomy with right femoral artery and vein cannulation POD#2
-Myxomatous mitral valve degeneration, type II pathology with severe insufficiency, Agosto valve
-Mild mitral annular calcification
-Hyperlipidemia
-Palpitations
-Ocular migraines
-Mild cardiomegaly
Subjective
Procedure
s/p Radical mitral valve repair (40 mm band annuloplasty, 6 sets of neocords to leaflets, for going to the posterior leaflet to go to the anterior leaflet at A2) through right mini thoracotomy with right femoral artery and vein cannulation on
09/21/[address] Dave
-
Date of Service: September 23, 2024
Objective Data
-
Lab Results
09/23/24 03:32
09/23/24 03:32
PT 16.7 Sec (11.4-14.6) H 09/21/24 14:31
INR 1.32 09/21/24 14:31
APTT 26.2 Sec (23.4-35.0) 09/21/24 14:31
Vital Signs
Vital Signs
Temp Pulse Resp BP Pulse Ox
98.3 F 75 18 107/68 93
09/23/24 03:37 09/23/24 03:35 09/23/24 03:37 09/23/24 03:20 06/01/25 03:37
CT Intake/Output/Weight
09/22/24 09/22/24 09/23/24
06:59 18:59 06:59
Intake Total 584.6 / 1619.2 462.4 / 482.4 20 / 482.4
Output Total 540 / 920 5 / 5
Balance 44.6 / 699.2 457.4 / 477.4 20 / 477.4
SaO2: 93
Physical Exam
-
General: Awake and Oriented
Cardiovascular: Regular rate & rhythm, No Murmurs and Rub
Respiratory: Clear and Equal
Sternum: Stable
Incision: Clean and Dry
Extremities: No Edema and No Erythema
Data Reviewed
-
Lab Results: Results Reviewed
Medications: Active Meds Reviewed
Chest X-Ray: Report Reviewed
ECG: Report Reviewed
[2024-09-23 06:00] VITALS: BMI 22.9
[2024-09-23 06:27] LABS: Blood Urea Nitrogen 24 mg/dl (7-17); Calcium 8.2 mg/dl (8.4-10.2); Carbon Dioxide 27 mmol/L (22-30); Chloride 103 mmol/L (98-107); Estimated Creatinine Clearance 81 ml/min; Glucose 120 mg/dl (70-99); Potassium 4.9 mmol/L (3.5-5.1); Sodium 131 mmol/L (135-145); eGFR > 60.00
--- NOTE | 2024-09-23 08:00 | PTCARENOTE ---
received pt from previous rn. walking rounds completed. AAOx3. VSS. NSR. HR 70s, V wire insulated. +pulses trace edema. pox 94% on RA, IS 1250. appetite fair. +bs. BRP. all surgical incisions intact, RIJ cordis infusing KVO, PIVx1. Will continue to
monitor.
[2024-09-23] MEDS: MAGNESIUM OXIDE 500 MG PO (08:55)
[2024-09-23] MEDS: SENOKOT-S 1 TABLET PO ×2 (08:55→20:33)
[2024-09-23] MEDS: PROTONIX 40 MG PO (08:55)
[2024-09-23] MEDS: LOPRESSOR 12.5 MG PO ×2 (08:55→20:32)
[2024-09-23] MEDS: NEURONTIN 100 MG PO ×3 (08:55→20:39)
[2024-09-23] MEDS: COLCHICINE 0.6 MG PO ×2 (08:55→20:33)
[2024-09-23] MEDS: PACERONE 200 MG PO ×3 (08:56→23:21)
[2024-09-23] MEDS: LOW STRENGTH ASPIRIN 81 MG PO (08:56)
[2024-09-23] MEDS: BACTROBAN 2% OINTMENT 1 APPLIC NASAL ×2 (08:57→20:46)
[2024-09-23] MEDS: LASIX 20 MG IV (09:05)
--- NOTE | 2024-09-23 12:00 | PTCARENOTE ---
no change in assessment. VSS. family at bedside. repeat labs sent and urine specimen collected.
[2024-09-23 12:04] VITALS: BP 118/76
[2024-09-23 12:45] LABS: Blood Urea Nitrogen 19 mg/dl (7-17); Calcium 8.1 mg/dl (8.4-10.2); Carbon Dioxide 26 mmol/L (22-30); Chloride 102 mmol/L (98-107); Estimated Creatinine Clearance 81 ml/min; Glucose 136 mg/dl (70-99); Sodium 131 mmol/L (135-145); eGFR > 60.00
[2024-09-23 15:25] VITALS: BP 125/88
[2024-09-23] MEDS: CORDARONE 103 MG IV (15:46)
[2024-09-23] MEDS: CORDARONE 518 MG IV (15:46)
[2024-09-23] MEDS: LOPRESSOR 2.5 MG IV (16:10)
[2024-09-23] MEDS: FERRLECIT 110 MG IV (16:11)
[2024-09-23] MEDS: NSS IV (16:18)
[2024-09-23 16:33] VITALS: BP 108/71
[2024-09-23 16:34] LABS: Urine Albumin Negative (Neg - Trace); Urine Bilirubin Negative (Negative); Urine Character Clear (Clear); Urine Color Yellow; Urine Glucose Negative (Negative); Urine Ketone 2+ (Negative); Urine Leukocyte Negative (Negative); Urine Nitrite Negative (Negative); Urine Occult Blood Negative (Negative); Urine Specific Gravity 1.005 (<1.030); Urine Urobilinogen Negative (Neg - 1+)
--- NOTE | 2024-09-23 16:36 | PTCARENOTE ---
1530- afib. IV lopressor given , amio bolus given . converted to SR HR 60s. gtt infusing now. JESSICA Morris made aware. will continue to monitor.
[2024-09-23 16:38] LABS: Osmolality Urine 295 mOsm/kg (300-900)
[2024-09-23 16:46] LABS: Urine Sodium 62 mmol/L (30-90)
[2024-09-23] MEDS: MAGNESIUM SULFATE 50 IV (18:42)
[2024-09-23] MEDS: MAGNESIUM OXIDE PO (20:33)
[2024-09-23 20:36] VITALS: BP 113/73
[2024-09-23] MEDS: LIPITOR 20 MG PO (23:22)
[2024-09-23 23:26] VITALS: BP 105/68
--- NOTE | 2024-09-24 | PTCARENOTE ---
pt ambulating in room to bathroom, NSR per tele monitor. VSS, assessment remains unchanged.
--- NOTE | 2024-09-24 02:29 | W.PN.CT ---
Today's Communication / Plan
-
No major events overnight�
AFIB= brief issues with AFIB/ (current in NSR= received Amio load * Continue Amio�drip// 2 mg grams of magnesium, and metoprolol 2.5)�
High risk for NIKKI (avoid Diuresis)�
Consider dc cordis and VVI wires (Insulated)�
Will need pre-DC TTE�
Current meds (Amio, ASA, Lipitor, colchicine, gabapentin, Lopressor)�
Assessment / Plan
-
s/p Radical mitral valve repair (40 mm band annuloplasty, 6 sets of neocords to leaflets, for going to the posterior leaflet to go to the anterior leaflet at A2) through right mini thoracotomy with right femoral artery and vein cannulation POD#3
-Myxomatous mitral valve degeneration, type II pathology with severe insufficiency, Agosto valve
-Mild mitral annular calcification
-Hyperlipidemia
-Palpitations
-Ocular migraines
-Mild cardiomegaly
Subjective
Procedure
s/p Radical mitral valve repair (40 mm band annuloplasty, 6 sets of neocords to leaflets, for going to the posterior leaflet to go to the anterior leaflet at A2) through right mini thoracotomy with right femoral artery and vein cannulation on
09/21/[address] Dave
-
Date of Service: September 24, 2024
Objective Data
-
PT 16.7 Sec (11.4-14.6) H 09/21/24 14:31
INR 1.32 09/21/24 14:31
APTT 26.2 Sec (23.4-35.0) 09/21/24 14:31
Vital Signs
Vital Signs
Temp Pulse Resp BP Pulse Ox
98.5 F 61 20 105/68 93
09/23/24 20:00 09/24/24 01:30 09/23/24 20:00 09/23/24 23:26 09/23/24 20:35
CT Intake/Output/Weight
09/23/24 09/23/24 09/24/24
06:59 18:59 06:59
Intake Total 20 / 482.4 20 / 73.3 53.3 / 73.3
Output Total 450 / 450
Balance 20 / 477.4 20 / -376.7 -396.7 / -376.7
SaO2: 93
[2024-09-24 03:23] VITALS: BP 124/69
[2024-09-24 03:43] LABS: Hematocrit 30.8 % (37.0-47.0); Hemoglobin 10.7 g/dL (12.0-16.0); Mean Corp Hgb Conc. 34.7 g/dL (33.0-37.0); Mean Corpuscular Hgb 32.2 pg (27.0-31.0); Mean Corpuscular Volume 92.8 fL (81.0-99.0); Mean Platelet Volume 10.8 fL (7.4-10.4); Platelet Count 160 10^3/uL (130-400); Red Blood Cell Count 3.32 10^6/uL (4.20-5.40); Red Cell Dist. Width 12.1 % (11.5-14.5); White Blood Cell Count 10.4 10^3/uL (4.8-10.8)
--- NOTE | 2024-09-24 04:00 | PTCARENOTE ---
routine labs obtained, VSS, NSR assessment remains unchanged.
[2024-09-24 04:17] LABS: Blood Urea Nitrogen 12 mg/dl (7-17); Calcium 8.2 mg/dl (8.4-10.2); Carbon Dioxide 28 mmol/L (22-30); Chloride 105 mmol/L (98-107); Estimated Creatinine Clearance 81 ml/min; Glucose 108 mg/dl (70-99); Magnesium 2.2 mg/dl (1.6-2.3); Sodium 135 mmol/L (135-145); eGFR > 60.00
[2024-09-24 05:24] VITALS: BMI 22.0
[2024-09-24] MEDS: TYLENOL 1000 MG PO (05:25)
[2024-09-24 08:58] VITALS: BP 110/85
[2024-09-24] MEDS: COLCHICINE 0.6 MG PO (08:59)
[2024-09-24] MEDS: PACERONE 200 MG PO (08:59)
[2024-09-24] MEDS: PROTONIX 40 MG PO (08:59)
[2024-09-24] MEDS: LOW STRENGTH ASPIRIN 81 MG PO (08:59)
[2024-09-24] MEDS: NEURONTIN 100 MG PO (08:59)
[2024-09-24] MEDS: LOPRESSOR 12.5 MG PO (08:59)
[2024-09-24] MEDS: MAGNESIUM OXIDE 500 MG PO (08:59)
[2024-09-24] MEDS: SENOKOT-S 1 TABLET PO (08:59)
[2024-09-24] MEDS: BACTROBAN 2% OINTMENT 1 APPLIC NASAL (09:29)
--- NOTE | 2024-09-24 09:33 | PTCARENOTE ---
assumed care of pt from previous shift RN, sinus rhythm on tele, VSS, + peripheral pulses, no edema. Lungs clear, pox 98% on RA. +bs, tolerating PO intake, voids spontaneously. Cordis w amiodarone infusing, piv flushes easily. Surgical sites stable.
Plan of care reviewed and questions encouraged.
[2024-09-24 09:54] VITALS: BP 101/75
[2024-09-24 10:05] VITALS: BP 96/75
[2024-09-24 10:12] VITALS: BP 101/75; BP 96/75; PULSE 61; O2SAT 96; O2SAT 98
--- NOTE | 2024-09-24 10:28 | W.DCSUMMARY ---
Discharge Summary
Discharge Data
Date of Admission: 09/21/24
Date of Discharge: 09/24/24
-
Pending Results: No
Hospital Course
Primary care physician: Neha Jacobson
Outpatient bone process operator: Chely Hernandez
Inpatient consultants: [facility] Cardiology, pulmonary tour leader
Procedures:
1. mini MV repair, #40 band, Goretex chords to anterior & posterior leaflets; ELAA #35 & #40 clip
Primary Diagnosis:
1. Myxomatous mitral valve degeneration, type II pathology with severe insufficiency, Agosto valve
Secondary Diagnoses:
1. Mild mitral annular calcification
3. Hyperlipidemia
4. Palpitations
5. Ocular migraines
6. Mild cardiomegaly
7. Brief post-operative atrial fibrillation
8. Acute post-op pericarditis
HPI: 59-year-old female was electively admitted on 09/21/2024 for mitral valve repair due to Agosto's valve.
Hospital course: Patient underwent Heart port MV repair, #40 band, Goretex chords to anterior & posterior leaflets; ELAA #35 & #[address] Eric Dave. Intraoperative ANNIKA reported an EF 50-55%, no NIKKI, MV mean 4mmHg Patient received no
intraoperative blood products and was extubated in the operating room. She returned to the CVICU on Levophed, which was quickly weaned off. Colchicine was initiated on postoperative day #1 for pericarditis. Patient developed brief atrial
fibrillation with rapid ventricular response that converted with amiodarone bolus and infusion. Transitioned to oral amiodarone on postoperative day #3 and infusion was discontinued. Two epicardial pacing wires were clipped at skin level.
Amiodarone 200 mg twice daily will continue for 2 weeks and then transition to 200 mg daily. The 2 view chest x-ray was completed and reported small B/L pleural effusions and no pneumothorax. TTE reported an EF 50-55%, MV gradients 10/4mmHg with
trace MR. patient ambulated in halls independently and completed stairs-deemed stable for discharge to home. Hemoglobin was 10.7 and creatinine 0.7 on day of discharge. No prn Lasix was prescribed on discharge as patient at risk for NIKKI.
Home medication changes:
Amiodarone 200 mg twice daily x 2 weeks then 200 mg daily
Colchicine 0.3 mg daily for pericarditis as on concomitant amiodarone
Discharge Plan
-
Patient Disposition: Home (Routine Discharge)
Discharge Diagnosis/Procedures: mitral repair/left atrial appendage clip
Condition: Good
Diet: Low Cholesterol
Activity: No strenuous activity
Driving Restrictions: Not until seen by your Dr
Bathing Restrictions: OK to Shower
Other Services: Cardiac Rehab
Specialty Instructions: Weigh Daily- Call MD for wt gain/loss 3 lbs overnight/5 lbs in 1 week
Referrals:
CT Transitional Care Nurse [Outside]
Referral Note: The Cardiothoracic Transitional Care Nurse will call you to set up a visit in 1-2 days.
[facility] [Outside]
Referral Note: Cardiac Rehab Orientation appointment and� First Exercise appointment is on October 22 at 1:00.
The Cardiac Rehab gym is located on the first floor of the [facility].
Neha Jacobson DO [Family Provider, Family Practice]
Payton Haley CRNP [Specified Professional Personl, Cardiology] - 11/05/24 1:40 pm
Eric Dave MD [Active, Cardiac Surgery] - 10/22/24 1:45 pm
Prescriptions:
New
amiodarone 200 mg tablet
200 mg PO BID Qty: 60 1RF
Rx Instructions:
1 tab twice daily for 2 weeks, then 1 tab daily
colchicine (cardiac) 0.5 mg tablet
0.3 mg PO DAILY Qty: 30 0RF
acetaminophen 325 mg Tablet
650 mg PO Q4HPRN PRN (Reason: mild pain,headache,temp >101F ) Qty: 0 0RF
aspirin 81 mg Tablet,Chewable
81 mg PO DAILY Qty: 0 0RF
gabapentin 100 mg Capsule
100 mg PO TID Qty: 30 0RF
oxycodone 5 mg Tablet
5 mg PO Q4HPRN PRN (Reason: severe pain) Qty: 20 0RF
cyclobenzaprine 10 mg Tablet
5 mg PO Q8HPRN PRN (Reason: muscle spasm) Qty: 10 0RF
metoprolol succinate [Toprol XL] 25 mg tablet extended release 24 hr
25 mg PO DAILY Qty: 30 1RF
Continued
atorvastatin 20 mg Tablet
20 mg PO HS
omega-3 fatty acids Capsule
1 cap PO DAILY
Women's Daily Multivitamin 18-400 mg-mcg Tablet
1 tab PO DAILY
Discharge Orders:
Discharge Patient (As Directed); Ordered 09/24/24
Ordered By: Sayra Santana
Care Plan Goals
Care Plan Goals:
Problem: Readiness for enhanced knowledge related to diagnosis and treatment plan
Goal: Understand your diagnosis and treatment plan needs, including medications if applicable.
Instructions: Know your diagnosis, underlying causes and treatment plan options, including medications if applicable. Consult with your health care team to learn about your diagnosis and treatment plan, including medications if applicable.
Discharge Date and Time
Print Language: AUSTRALIAN
--- NOTE | 2024-09-24 10:33 | W.PN.UPDATE ---
Update Note
Progress Note Update
2 epicardial ventricular pacing wires were clipped at skin level.
--- NOTE | 2024-09-24 10:39 | PTCARENOTE ---
cordis removed, pacing wire cut by CT ROSANNE. Pt sent for 2 view CXR.
--- NOTE | 2024-09-24 11:07 | CM ---
Pricing on Eliquis through the patients prescription plan, ID# [id number], is $25 for a 30 day supply. I placed a $10 copay card in the patient's red discharge folder. Patient agreeable to cost.
--- NOTE | 2024-09-24 11:08 | CM ---
Chart reviewed. Patient independent of ADLS, lives with her and daughter in a [address], 1 [address], 0 DME. Plan is for the patient to return home with CT Transitional RN. CM to follow
--- NOTE | 2024-09-24 11:38 | W.PN.CARDCBS ---
Today's Communication / Plan
-
D/C to home today pending TTE
Impression / Plan
-
PCP: Dr. Neha Jacobson
Primary [employer] Project Manager: Dr. Hernandez of [facility]
Impression:
Admitted for MVR 09/21/24
s/p radical MV repair with 40 mm band annuloplasty via right minithoracotomy for severe MR and ANYA clip on 09/21/2024
Nonobstructive CAD by cath 09/19/24
Hyperlipidemia
History of palpitations
Ocular migraines
ECHO 09/04/24 at [facility]: EF 55%, severely dilated LA, mildly dilated RA, prolapse of both mitral valve leaflets, severe M R, high velocity MR jets
Echo 09/24/2024: Report pending
Plan:
-Patient had radical MV ring repair via minithoracotomy and ANYA clip on 09/21/2024 and has remained HD stable
-Patient with brief paroxysm of A-fib that converted spontaneously to SR. Patient is being discharged with amiodarone 200 mg BID.
-Patient had ANYA clip on 09/21/2024 and the clip was well-seated with no flow seen through the left atrial appendage remnant by IntraOp ANNIKA 09/21/2024
-Patient had friction rub on exam 09/22/2024 and was started on colchicine 0.6 mg BID which will be continued upon discharge to home, generally colchicine therapy is continued for 3 months
-Pericardial friction rub on exam and diffuse ST segment elevation on her EKG is consistent with pericarditis
-Lipids unknown, atorvastatin 20 mg daily ordered
-Patient will follow-up with her primary prosthetics technician
Progress Note - [employer] Project Manager
Subjective
Date of Service: September 24, 2024
No chest pain
Objective
Labs:
09/24/24 03:21
09/24/24 03:21
Labs
Hgb 10.7 g/dL (12.0-16.0) L 09/24/24 03:21
Hct 30.8 % (37.0-47.0) L 09/24/24 03:21
Plt Count 160 10^3/uL (130-400) 09/24/24 03:21
PT 16.7 Sec (11.4-14.6) H 09/21/24 14:31
INR 1.32 09/21/24 14:31
APTT 26.2 Sec (23.4-35.0) 09/21/24 14:31
Sodium 135 mmol/L (135-145) 09/24/24 03:21
Potassium 4.0 mmol/L (3.5-5.1) 09/24/24 03:21
BUN 12 mg/dl (7-17) 09/24/24 03:21
Creatinine 0.7 mg/dL (0.6-1.0) 09/24/24 03:21
Glucose 108 mg/dl (70-99) H 09/24/24 03:21
Vital Signs and I&O:
Vital Signs
Temp Pulse Resp BP Pulse Ox
98.6 F 64 16 99
09/24/24 08:58 09/24/24 11:00 09/24/24 08:58 09/24/24 10:05 09/24/24 10:05
Vital Signs
Temp Pulse Resp BP Pulse Ox
98.6 F 64 16 99
09/24/24 08:58 09/24/24 11:00 09/24/24 08:58 09/24/24 10:05 09/24/24 10:05
Intake & Output
09/22/24 09/23/24 09/24/24 09/25/24
06:59 06:59 06:59 06:59
Intake Total 1608.4 / 1619.2 482.4 / 482.4 73.3 / 73.3 26.7 / 26.7
Output Total 915 / 920 5 / 5 1850 / 1850 300 / 300
Balance 693.4 / 699.2 477.4 / 477.4 -1776.7 / -1776.7 -273.3 / -273.3
Physical Exam
Physical Exam
GEN: AAOx3
LUNGS: RA
CV: SR on tele
[2024-09-24 11:41] VITALS: BP 115/74
--- NOTE | 2024-09-24 12:30 | PTCARENOTE ---
pt sent for echo
[2024-09-24] MEDS: NSS IV (13:10)
--- NOTE | 2024-09-24 14:28 | PTCARENOTE ---
post op dressings removed. pt tolerated shower. discharge instructions, medication list and follow up appointments reviewed w the pt and questions encouraged.
== END 2024-09-24 14:39 | disposition home or self-care (01) | DRG 219 ==
LOC: CVICU 07:20
PROVIDERS: Anesthesiology; Clinical Nurse Specialist Acute Care; Nurse Practitioner; Physician Assistant; ADMITTING PHYSICIAN Thoracic Surgery (Cardiothoracic Vascular Surgery); CONSULT PHYSICIAN Internal Medicine Critical Care Medicine; FAMILY PHYSICIAN Family Medicine
PROC: 5A1221Z Performance of Cardiac Output, Continuous (ICD-10-PCS; 2024-09-21)
PROC: B24BZZ4 Ultrasonography of Heart with Aorta, Transesophageal (ICD-10-PCS; 2024-09-21)
PROC: 02UG0JZ Supplement Mitral Valve with Synthetic Substitute, Open Approach (ICD-10-PCS; 2024-09-21)
PROC: 02L70CK Occlusion of Left Atrial Appendage with Extraluminal Device, Open Approach (ICD-10-PCS; 2024-09-21)
PROC: 5A09357 Assistance with Respiratory Ventilation, Less than 24 Consecutive Hours, Continuous Positive Airway Pressure (ICD-10-PCS; 2024-09-21)
DX: I34.0 Nonrheumatic mitral (valve) insufficiency (principal); J96.02 Acute respiratory failure with hypercapnia; E87.4 Mixed disorder of acid-base balance; I30.8 Other forms of acute pericarditis; I34.81 Nonrheumatic mitral (valve) annulus calcification; I48.91 Unspecified atrial fibrillation; E78.00 Pure hypercholesterolemia, unspecified; Z79.899 Other long term (current) drug therapy; Z82.49 Family history of ischemic heart disease and other diseases of the circulatory system
CPT/HCPCS: 93308; 36415; 71045; 71046; 71275; 74174; 80048; 80053; 81003; 81015; 82248; 82330; 82565; 82805; 82810; 82947; 82962; 83036; 83735; 83935; 84132; 84300; 84302; 84520; 85014; 85018; 85025; 85027; 85049; 85610; 85730; 86850; 86900; 86901; 86920; 87070; 87086; 93005; 93312; 93320; 93321; 93325; 93880; 94660; J2916; Q9967

== ENCOUNTER → 2024-10-01 14:06 | Outpatient (REF) | payer OTHER, SELFPAY ==
[2024-10-01 14:42] LABS: % Basophils 0.8 % (0-2); % Eosinophils 1.8 % (0-6); % Immature Granulocytes 0.8 % (0-0.5); % Lymphocytes 18.4 % (20.5-51.1); % Monocytes 5.1 % (1.7-9.3); % Neutrophils 73.1 % (42.2-75.2); Absolute Basophils 0.1 10^3/uL (0-0.2); Absolute Eosinophils 0.1 10^3/uL (0-0.7); Absolute Immature Granulocytes 0.1 10^3/uL (0-0.05); Absolute Lymphocytes 1.3 10^3/uL (1.2-3.4); Absolute Monocytes 0.4 10^3/uL (0.1-0.6); Absolute Neutrophils 5.3 10^3/uL (1.4-6.5); Hematocrit 35.8 % (37.0-47.0); Hemoglobin 12.2 g/dL (12.0-16.0); Mean Corp Hgb Conc. 34.1 g/dL (33.0-37.0); Mean Corpuscular Hgb 31.1 pg (27.0-31.0); Mean Corpuscular Volume 91.3 fL (81.0-99.0); Mean Platelet Volume 9.6 fL (7.4-10.4); Nucleated Red Blood Cells % 0 %; Platelet Count 266 10^3/uL (130-400); Red Blood Cell Count 3.92 10^6/uL (4.20-5.40); White Blood Cell Count 7.2 10^3/uL (4.8-10.8)
== END ==
LOC: REG 14:06
PROVIDERS: ATTENDING PHYSICIAN Nurse Practitioner Acute Care; FAMILY PHYSICIAN Family Medicine
DX: L76.34 Postprocedural seroma of skin and subcutaneous tissue following other procedure (principal); R50.82 Postprocedural fever
CPT/HCPCS: 36415; 85025

== ENCOUNTER → 2024-10-08 06:44 | Outpatient (REF) | payer OTHER, SELFPAY ==
[2024-10-08] VITALS (7 sets, daily range): BP systolic 59–123; BP diastolic 76–84
== END ==
LOC: RADI 06:44
PROVIDERS: ATTENDING PHYSICIAN Thoracic Surgery (Cardiothoracic Vascular Surgery); FAMILY PHYSICIAN Family Medicine
DX: L76.34 Postprocedural seroma of skin and subcutaneous tissue following other procedure (principal); Y83.8 Other surgical procedures as the cause of abnormal reaction of the patient, or of later complication, without mention of misadventure at the time of the procedure
CPT/HCPCS: 10030; 49185; C1729; C1769

== ENCOUNTER → 2024-10-10 14:11 | Outpatient (REF) | payer OTHER, SELFPAY ==
--- NOTE | 2024-10-10 15:13 | W.PN.UPDATE ---
Update Note
Progress Note Update
59 yo female with recurrent right groin seroma s/p IR drain placement and sclerosing on 10/08/24. Outputs have decreased to less than 10cc in 24 hours. Drain prepped and draped. The drain was removed bedside and a DSD was applied. Pt given verbal
discharge instructions
== END ==
LOC: RADI 14:11
PROVIDERS: ATTENDING PHYSICIAN Radiology Diagnostic Radiology; FAMILY PHYSICIAN Family Medicine; REFERRING PHYSICIAN Thoracic Surgery (Cardiothoracic Vascular Surgery)
DX: Z46.82 Encounter for fitting and adjustment of non-vascular catheter (principal)

== ENCOUNTER → 2024-10-15 12:51 | Outpatient (REF) | payer OTHER, SELFPAY ==
[2024-10-15 13:15] VITALS: BP 117/82; BP_SYST 69
--- NOTE | 2024-10-15 15:44 | PN.IRAD.UPD ---
Update Note - IRAD
- -
AT 1541, REMOVED 8ML FROM DRAIN, CONNECTED TO LYNETTE BULB, NO COMPLAINTS FROM PATIENT AND J CARLOS DISCHARGING
== END ==
LOC: RADI 12:51
PROVIDERS: ATTENDING PHYSICIAN Thoracic Surgery (Cardiothoracic Vascular Surgery)
DX: L76.34 Postprocedural seroma of skin and subcutaneous tissue following other procedure (principal); Y83.8 Other surgical procedures as the cause of abnormal reaction of the patient, or of later complication, without mention of misadventure at the time of the procedure
CPT/HCPCS: 10030; 49185; C1729; C1769

== ENCOUNTER 2024-10-23 16:43 | Outpatient (RCR) | payer OTHER, SELFPAY | END 2024-10-23 16:54 | disposition home or self-care (01) | LOC: CRHB 16:43 | PROVIDERS: ATTENDING PHYSICIAN Internal Medicine Cardiovascular Disease | DX: I34.0 Nonrheumatic mitral (valve) insufficiency (principal); Z95.4 Presence of other heart-valve replacement | CPT/HCPCS: 93798 ==

== ENCOUNTER 2024-10-24 05:46 | Day surgery (SDC) | payer OTHER, SELFPAY ==
[2024-10-24] VITALS (7 sets, daily range): BP systolic 112–148; BP diastolic 71–96; BMI 21.0
[2024-10-24] MEDS: NORMOSOL-R/PLASMALYTE-A 1000 IV (06:22)
--- NOTE | 2024-10-24 07:44 | W.PN.CT.SURG ---
CT Surgery Operative Note
-
Pre-op Diagnosis: Right groin seroma, recurrent
Post-op Diagnosis: Same
Date of surgery: 10/24/2024
Procedure and findings: Right groin incision reopened, and deloculated, the area was then sprayed with Mikhail hemostatic agent and watched for any weeping areas. 2 areas were identified, this was ligated with multiple clips as well as sutures.
There was still was then washed out with antibiotic solution and a new layer of Mikhail was placed, no new areas of weeping were identified. The wound was then closed in layers ensuring closure of the space and the skin was not sealed and a
cricket VAC was placed over top. The wound bed itself did not appear to be infected, there is no erythema and no purulent fluid. The previous drain is placed by IR was cut and removed.
Primary Surgeon: Eric Dave MD
Assisting Surgeons: Jenny Mendez PA-C
Anesthesia: Tali Alcantara CRNA and Judd Gilmore MD
Specimen: None
Cultures: None
Complications / Blood Loss: 1cc
Thank you for involving me in the care of this patient. Please feel free to contact me with any questions or concerns.
Eric Dave MD, MS
Cardiothoracic Surgeon
This dictation was created using the [employer] dictation system. Please excuse any grammatical, typographical, or 'sound alike' errors.
== END 2024-10-24 08:35 | disposition home or self-care (01) ==
LOC: SDS 05:46
PROVIDERS: ATTENDING PHYSICIAN Thoracic Surgery (Cardiothoracic Vascular Surgery)
DX: L76.34 Postprocedural seroma of skin and subcutaneous tissue following other procedure (principal); Y83.8 Other surgical procedures as the cause of abnormal reaction of the patient, or of later complication, without mention of misadventure at the time of the procedure
CPT/HCPCS: 10140

== ENCOUNTER → 2025-01-09 12:36 | Outpatient (REF) | payer OTHER, SELFPAY | LOC: RCS 12:36 | PROVIDERS: ATTENDING PHYSICIAN Internal Medicine Interventional Cardiology; FAMILY PHYSICIAN Family Medicine | DX: I34.0 Nonrheumatic mitral (valve) insufficiency (principal); Z98.890 Other specified postprocedural states | CPT/HCPCS: 93306 ==